=== PATIENT | female | born 1955 | race Caucasian/White ===

== ENCOUNTER 2017-08-25 13:04 | Outpatient (CLI) | payer OTHER ==
--- NOTE | 2017-08-28 14:37 | MMO ---
BILATERAL SCREENING MAMMOGRAMS: Date: 08/25/17 Comparison made to prior exams from 2013, 2014, 2016. This patient's mammogram was interpreted with the assistance of computer-aided detection. FINDINGS: Scattered fibroglandular densities. Benign calcifications. No evidence of mass or distortion. No inte rval change seen. Recommend one year follow-up. IMPRESSION: BIRADS 2: Benign Finding(s) POS: [facility]
== END 2017-08-25 13:05 | disposition home or self-care (01) ==
LOC: MAMMO 13:04
PROVIDERS: ATTEND Obstetrics & Gynecology
DX: Z12.31 Encounter for screening mammogram for malignant neoplasm of breast (principal)
CPT/HCPCS: 77067; G0202

== ENCOUNTER 2018-11-10 13:51 | Outpatient (CLI) | payer OTHER ==
--- NOTE | 2018-11-10 14:52 | MMO ---
BILATERAL SCREENING MAMMOGRAM: Date: 11/10/18 HISTORY: 63-year-old female. Routine screening mammography. COMPARISON: 08/03/15, 07/23/16, 08/25/17. TECHNIQUE: CC and MLO views of both breasts are submitted for interpretation. This patient's mammogram was reviewed with the assistance of computer-aided detection. FINDINGS: The breasts are composed of scattered fibroglandular tissue. Bilaterally, no suspicious dominant mass , architectural distortion, or suspicious calcifications. Bilateral benign-appearing calcifications. Stable biopsy clip in the right breast. IMPRESSION: BIRADS 2: Benign Finding(s) RECOMMENDATION: Annual mammogram. POS: [facility]
== END 2018-11-10 13:52 | disposition home or self-care (01) ==
LOC: SCSMAMMO 13:51
PROVIDERS: ATTEND Obstetrics & Gynecology
DX: Z12.31 Encounter for screening mammogram for malignant neoplasm of breast (principal)
CPT/HCPCS: 77067

== ENCOUNTER 2023-01-21 09:45 | Outpatient (CLI) | payer MEDICARE, OTHER | END 2023-01-21 09:46 | disposition home or self-care (01) | LOC: RAD 09:45 | PROVIDERS: ATTEND Internal Medicine Critical Care Medicine | DX: R06.00 Dyspnea, unspecified (principal) | CPT/HCPCS: 71046 ==